=== PATIENT | male | born 1980 | race Two or more races ===

== ENCOUNTER 2022-05-18 08:54 | Outpatient (CLI) | payer OTHER, SELFPAY ==
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
--- OUTSIDE RECORDS SUMMARY | 2022-05-18 09:01 | XMS_ITS ---
:1980 Author Care Team Providers Name Role Phone Lucas Demi Melendez Primary Care Provider Unavailable Allergies Code Code System Name Reaction Severity Status Onset NKDA ? Notes: Allergen: NO KNOWN ALLERGIES Medications Name Status Start Date Stop Date ? ? Actos 30 mg tablet Completed 06/27/2019 07/25/2019 take 1 tablet by oral route every day amitriptyline 50 mg tablet Completed ? 07/22 TAKE 1/2 TABLET BY MOUTH ONCE EVERY DAY Antifungal (tolnaftate) 1 % topical cream Completed ? 10/27/2020 Aspir-81 mg tablet,delayed release Active 06/27/2019 Not available take 1 tablet by oral route every day aspirin 81 mg chewable tablet Completed ? Chew 1 tablet every day by oral route. Benadryl 25 mg capsule Completed 02/16/2017 9 take 1 capsule at night for sleep buspirone 10 mg tablet Completed 07/27/2018 9 take 1 tablet by oral route 2 times every day cephalexin 250 mg capsule Completed ? 2020 Crestor 10 mg tablet Completed 05/04/2017 10/12/2017 take 1 tablet by oral route every day Crestor 20 mg tablet Completed ? 10/27/2020 Take 1 tablet every day by oral route at bedtime. duloxetine 30 mg capsule,delayed release Completed ? 09/16/2021 1 CAPSULE DAILY AT BEDTIME FOR 1 WEEK, THEN INCREASE TO 2 CAPSU LES DAILY famotidine 10 mg tablet Active ? Not avai lable Take 1 tablet twice daily as needed 30 minutes before meals gabapentin 300 mg capsule Active ? Not av ailable TAKE TWO CAPSULES BY MOUTH TWICE DAILY NEEDED FOR PAIN gabapentin 600 mg tablet Completed 03/21/2019 020 take 1 tablet by oral route 2 times every day glimepiride 2 mg tablet Active ? Not avai lable TAKE 2 TABLETS IN THE MORNING AND TAKE 2 TABLETS IN THE EVENING hydrocodone 5 mg-acetaminophen 325 mg tablet Completed ? 05/05/2022 TAKE 1 TABLET BY MOUTH EVERY 4 HOURS IF NEEDED FOR PAIN. MAX ACETAMINOPHEN DOSE: 4000 MG IN 24 HRS. hydrocortisone 2.5 % topical cream Completed ? 09/09/2020 ibuprofen 400 mg tablet Completed ? 05/05/20 22 TAKE 1 TABLET BY MOUTH EVERY 4 HOURS NEEDED FOR 5 DAYS. insulin syringe U-100 with needle 1 mL 31 gauge x /16 Active ? Not available USE DIRECTED Keflex 750 mg capsule Completed ? 09/16/2020 Take 1 capsule twice a day by oral route. Maalox Advanced 200 mg-200 mg-20 mg/5 mL oral suspension Complet ed 04/25/2019 09/09/2020 take 10 milliliter by oral route between meals and at bedtime a s needed melatonin 10 mg capsule Completed 08/02/2016 08/31/19 17 one at bed time meloxicam 7.5 mg tablet Completed ? 11/13/19 21 metformin 1,000 mg tablet Completed 07/05/20182018 one in am and one in evening metformin 500 mg tablet Active ? Not avai lable TAKE ONE TABLET BY MOUTH TWICE A DAY methylprednisolone 4 mg tablets in a dose pack Completed ? 05/05/2022 TAKE BY MOUTH INSTRUCTED PER PACKAGING. metoclopramide 5 mg tablet Completed ? 05/05 TAKE 1 TABLET PRIOR TO MEALS 2 TO 3 TIMES A DAY NEEDED naproxen 500 mg tablet Active ? Not avail able TAKE 1 TABLET (500 MG) BY MOUTH IN THE MORNING AND 1 TABLET (500 MG) IN THE EVENING. TAKE WITH MEALS. Novolin N NPH U-100 Insulin Active 08/28/2020 Not available 40 U in pm and 32 U in am Novolin N NPH U-100 Insulin isophane 100 unit/mL subcutaneous espinoza sp Active ? Not available inject 57 units in the morning and 39 units in the evening subc utaneously Saline Nasal 0.65 % spray aerosol Completed 06/27/2019 09/09/2020 one puff in each side of nose twice a day sulfamethoxazole 800 mg-trimethoprim 160 mg Completed ? 09/01/2020 tablet tizanidine 2 mg tablet Active ? Not avail able TAKE 1-2 TABLETS (2-4 MG) BY MOUTH AT BEDTIME. tizanidine 4 mg tablet Active ? Not avail able TAKE 1 TABLET (4 MG) BY MOUTH AT BEDTIME. tramadol 50 mg tablet Active ? Not availa ble TAKE 1 TABLET (50 MG) BY MOUTH FOUR TIMES DAILY 6 HOURS APART. triamcinolone acetonide 0.1 % topical cream Completed ? 09/09/2020 APPLY A THIN LAYER TO THE AFFECTED AREA(S) BY TOPICAL ROUTE 2 T IMES PER DAY triamcinolone acetonide 0.5 % topical cream Completed 06/2209/27/2018 apply by topical route 2 times every day a thin layer to th e affected area(s) Zantac Maximum Strength 150 mg tablet Completed 06/27/2019 06/27/2019 take 1 tablet by oral route 2 times every day Problems Name Status Onset Date Source ? Type 2 Diabetes Mellitus Active 02/13/2020 ? Steatosis of Liver Active 02/13/2020 ? Dyslipidemia Active 11/12/2020 ? Abdominal Pain Active 11/12/2020 ? History of Cellulitis Active 11/12/2020 ? Liver Function Test Increased Active 11/12/2020 ? Procedures Date Name Performed by ? 04/08/2021 Electrocardiogram, Routine ECG, 12 Leads [facility] Non Stat [address] [place] [address] (Work Place) 09/16/2021 XR, Lumbosacral Spine, 2 or 3 View [facility] Non Stat [address] [place] [address] (Work Place) Notes: no surgery in past Results Lab Results Date Name Specimen Result Interpretation Description Value Range Status Address ? 04/23/2022 CMP, Serum ? Creatinine 0.78 ? [facility] or Plasma Laborat ories: [address], [place] ? ? High Alt 89 ? Final [facility]: [address], [place] 04/22/2022 Hemoglobin ? Hemoglobin 8.7 ? [facility] a1C, QN, a1C Laborato ruthann: Blood [address], [place] 04/22/2022 Lipid Panel, ? Total 192 ? Final [place] [facility] ? ? High Triglycerides 155 ? Final [facility]: [facility] [place] ? ? Low Hdl 40 ? Final [place] Office: [address], [place] ? ? ? Ldl 121 ? Final [place] Office: [address], [place] ? ? ? Micro Ratio 8.6 ? Final [facility] Office: [address], [place] 04/22/2022 Microalbumin ? Total 192 ? Final [place] /creatinine, Cholesterol Office: [address], [place] ? ? High Triglycerides 155 ? Final [place] Office: [address], [place] ? ? Low Hdl 40 ? Final [place] Office: [address], [place] ? ? ? Ldl 121 ? Final [place] Office: [address] [facility] [address], [place] ? ? ? Micro Ratio 8.6 ? Final [facility] Office: [address], [place] 12/30/2021 Glycohemoglo High A1C 8.0 % <5 Final [facility] bin, Total, .7 Labor atory: Blood % [address] , [facility] 11/25/2021 Urinalysis, ? Leukocytes Negative ? ? [place] Dipstick Office: [address] [facility] [address] [place], [place] ? ? ? Nitrite negative ? ? [place] ult Office: [address] [facility] [address] [place], [place] ? ? ? Urobilinogen 0.2 EU/dL ? ? [place] Office: [address], [place] ? ? ? Protein Negative ? ? Sy[place] ult Office: [address], [place] ? ? ? Ph 5.5 ? ? [place] Office: [address], [place] ? ? ? Blood Negative ? ? [place] Office: [address] [facility] [address], [place] ? ? ? Specific 1.025 ? ? [place] Office: [address] [facility] [address], [place] ? ? ? Ketone Negative ? ? [place] Office: [address] [facility] [address], [place] ? ? ? Bilirubin Negative ? ? [facility] [facility] Office: [address] [facility] [address], [place] ? ? ? Glucose Negative ? ? Syeda ult Office: [address] [facility] [address], [place] ? ? ? Appearance Clear ? ? Farib adelso Office: [address] [facility] [place] ? ? ? Color Yellow ? ? [place] Office: [address] [facility] [place] 10/07/2021 HbA1C Blood ? Hba1C 9.3 ? ? Syeda ult (Hemoglobin capillary Of fice: 1415 a1C), Blood [facility] [place] a[place] 07/15/2021 HbA1C ? Hba1C 7.1 ? ? Syeda ult (Hemoglobin Offic e: 1415 a1C), Blood [facility] [place] 04/01/2021 Hemoglobin High Hemoglobin 8.4 ? Donna l [facility] a1C, QN, a1C Laborato ry: Blood [address] , [place] 04/01/2021 Microalbumin ? Creatinine .94 ? ? [place] /creatinine, Offi ce: [address], [facility] [place] ? ? ? Alt 53 ? ? [place] Office: [address] [facility] [place] ? ? ? Creatinine, 1.62 ? ? [place] [facility] Urine Office: 14 [address] [facility] Diaz Levineibault ? ? ? Microalbumin 6.5 ? ? [place] Office: 14 [address] [facility] [place] 04/01/2021 CMP, Serum ? Creatinine .94 ? ? [place] or Plasma Office: [address] [facility] [place] ? ? ? Alt 53 ? ? [place] Office: [address] [facility] [place] ? ? ? Creatinine, 1.62 ? ? [place] [facility] Urine Office: 14 [address] [facility] [place] Levineibault ? ? ? Microalbumin 6.5 ? ? [place] Office: 14 [address] [facility] [place] 11/17/2020 Hemoglobin ? Hemoglobin 10.0 ? Donna l [facility] a1C, QN, a1C Laborato ry: Blood [address] , [place] 11/17/2020 TSH, Serum ? Tsh 1.96 ? Final [facility] or Plasma Laborat ory: [address] , [place] 11/17/2020 Lipid Panel, ? Total 182 ? Final Serum Cholesterol ? ? ? Triglycerides 141 ? Final ? ? ? Hdl 39 ? Final ? ? ? Ldl 115 ? Final 04/15/2020 HbA1C ? No observation ? ? ? [place] (Hemoglobin recorded. Of fice: 1415 a1C), Blood [place] 04/10/2020 HbA1C ? No observation ? ? ? [place] (Hemoglobin recorded. Of fice: 1415 a1C), Blood [place] 04/09/2020 CMP, Serum ? Creatinine 0.87 ? Donna l [place] or Plasma Office: [address] [facility] [place] [place], [place] ? ? ? Alt 78 ? Final [place] Office: 14 [address] [facility] [place] [place], [place] ? ? ? Total 189 ? Final [place] Cholesterol Offic e: [address] [facility] [place] [place], [place] ? ? ? Triglycerides 223 ? Final Fa [place] Office: 14 [address] [facility] [place] [place], [place] ? ? ? Hdl 36 ? Final [place] Office: [address], [place] ? ? ? Ldl 108 ? Final [place] Office: [address], [place] ? ? ? Microalbumin 40.1 ? Final [place] Office: 14 15 [facility] [address] [place], [place] ? ? ? Hgb a1C 11.8 ? Final [place] t Office: [address] [place], [place] ? Microalbumin ? Creatinine .94 ? ? [place] /creatinine, Offi ce: [address], [facility] Cristian [place], [place] ? ? ? Alt 53 ? ? [place] Office: 14 [address] [facility] [place] [place], [place] ? ? ? Creatinine, 1.62 ? ? [place] b[place] Urine Office: 14 15 [facility] Ad[address] [place], [place] ? ? ? Microalbumin 6.5 ? ? [place] Office: 14 15 [facility] Adryan [place], [place] ? HbA1C ? No observation ? ? ? [facility] phelps (Hemoglobin recorded. Of fice: 1415 a1C), Blood [place] Past Encounters 05/05/2022 Type 2 Diabetes Mellitus without Complic ation; Steatosis of Liver; Indigestion; Constipation Demi Zavala, BUSINESS ACCOUNT SPECIALIST: [address] [facility] [place] [place] [address], Ph. 01/13/2022 Type 2 Diabetes Mellitus without Complic ation Demi Zavaal, BUSINESS ACCOUNT SPECIALIST: [address] [facility] [place] [address], Ph. 11/25/2021 Increased Frequency of Urination; Type 2 Diabetes Mellitus; Chronic Low Back Pain; Night Sweats Demi Zavala, BUSINESS ACCOUNT SPECIALIST: [address] [facility] [place] [address], Ph. 10/07/2021 Type 2 Diabetes Mellitus without Complic ation; Peripheral Neuropathy Due to Type 2 Diabetes Mellitus; Chronic Low Back Pain Demi Zavala, BUSINESS ACCOUNT SPECIALIST: [facility] [place] [address], Ph. 07/22/2021 Depressive Disorder; Type 2 Diabetes Kaitlin litus without Complication; Chest Pain Demi Zavala BUSINESS ACCOUNT SPECIALIST: [address] [facility] [place] [address], Ph. 04/08/2021 Type 2 Diabetes Mellitus without Complic ation; Chest Pain Demi Zavala BUSINESS ACCOUNT SPECIALIST: [facility] [place] [address], Ph. 12/17/2020 Type 2 Diabetes Mellitus without Complic ation Demi Zavala BUSINESS ACCOUNT SPECIALIST: [address] [facility] [place] [address], Ph. 11/19/2020 Fatigue; Tachycardia; Hyperglycemia Demi Zavala BUSINESS ACCOUNT SPECIALIST: [facility] [place] [address], Ph. Social History Tobacco Smoking Status Never Smoker Vaccine List None recorded. Plan of Care Patient Instructions We will call you with the results of yo ur A1c and lumbar xrays to discuss next steps. Keep increasing insulin 2 units m orning and night every 2 days until we reach your goal sugars. Reminders Provider Appointments None recorded. ? ? Lab None recorded. ? ? Referral None recorded. ? ? Procedures None recorded. ? ? Surgeries None recorded. ? ? Imaging None recorded. ? ? Vitals 05/05/2022 10:30AM ESTABLISHED PATIENT Height Weight BMI Blood Pressure 5 ft 5 in 224.8 lbs 37.4 kg/m2 115/76 mm[Hg] 01/13/2022 09:00AM Returning patient 45 Height Weight BMI Blood Pressure 5 ft 5 in 224.8 lbs 37.4 kg/m2 114/76 mm[Hg] 11/25/2021 09:45AM Returning patient 45 Height Weight BMI Blood Pressure 5 ft 5 in 226.4 lbs 37.7 kg/m2 121/79 mm[Hg] 10/07/2021 01:30PM ESTABLISHED PATIENT Height Blood Pressure 5 ft 5 in 126/79 mm[Hg] 07/22/2021 09:45AM ESTABLISHED PATIENT Height Weight BMI 5 ft 5 in 221.4 lbs 36.8 kg/m2 04/08/2021 10:30AM Returning patient 45 Height Weight BMI Blood Pressure 5 ft 5 in 221 lbs 36.8 kg/m2 118/72 mm[Hg] 12/17/2020 10:30AM Returning patient 45 Height Weight BMI Blood Pressure 5 ft 5 in 218 lbs 36.3 kg/m2 123/77 mm[Hg] 11/19/2020 03:00PM NEW PATIENT 45 Height Weight BMI Blood Pressure 5 ft 5 in 212.5 lbs 35.4 kg/m2 136/86 mm[Hg] 11/17/2020 Weight Blood Pressure 212 lbs 136/86 mm[Hg] 08/27/2019 Blood Pressure 143/90 mm[Hg] 08/20/2019 Blood Pressure 141/82 mm[Hg] 07/25/2019 Blood Pressure 129/73 mm[Hg] 06/27/2019 Blood Pressure 145/77 mm[Hg] 04/25/2019 Blood Pressure 135/78 mm[Hg] 03/21/2019 Blood Pressure 141/78 mm[Hg] 02/14/2019 Blood Pressure 117/72 mm[Hg] 12/13/2018 Blood Pressure 122/72 mm[Hg] 11/01/2018 Blood Pressure 138/78 mm[Hg] 09/27/2018 Blood Pressure 134/84 mm[Hg] 08/23/2018 Blood Pressure 111/73 mm[Hg] 07/27/2018 Blood Pressure 135/75 mm[Hg] 07/05/2018 Blood Pressure 134/76 mm[Hg] 05/24/2018 Blood Pressure 121/74 mm[Hg] 05/11/2018 Blood Pressure 124/86 mm[Hg] 12/14/2017 Blood Pressure 122/78 mm[Hg] 11/16/2017 Blood Pressure 129/80 mm[Hg] 10/12/2017 Blood Pressure 106/68 mm[Hg] 09/07/2017 Blood Pressure (1) 124/71 mm[Hg] (2) 126/81 mm[Hg] 05/04/2017 Blood Pressure 129/72 mm[Hg] 02/16/2017 Blood Pressure 126/80 mm[Hg] 10/19/2016 Blood Pressure 127/82 mm[Hg] 08/31/2016 Blood Pressure 129/78 mm[Hg] 08/02/2016 Blood Pressure 120/73 mm[Hg] 07/06/2016 Blood Pressure 126/78 mm[Hg] 06/30/2016 Blood Pressure 136/82 mm[Hg] 04/28/2016 Blood Pressure 118/68 mm[Hg]
--- OUTSIDE RECORDS SUMMARY | 2022-05-18 09:01 | XMS_ITS | Encounter Summary ---
:1980 Author Reason for Visit None recorded. Assessment and Plan 1. Type 2 diabetes mellitus without com plication A1c 8.7% - less controlled than previou s visit, potentially due to musculoskeletal pain and multiple new analgesic meds. In crease insulin dosing to 47 units in the AM and 37 in the PM. Written instructions w ith new insulin dose and blood sugar goals provided (80-130 fasting and <180 2 hour s postprandial). Continue Metformin - refills sent to pharmacy. Insulin syringes and b lood glucose test strips provided. Follow up 3 months with labs. Refill gabapentin an d glimepiride. ? metformin 500 mg tablet ? hemoglobin A1c, QN, blood ? gabapentin 300 mg capsule ? glimepiride 2 mg tablet 2. Steatosis of liver AST and ALT slightly higher than previo us. Could be due to multiple new analgesics that patient has taken. Continue to [facility]. Check in 6 months ? hepatic function panel, serum 3. Indigestion Abdominal pain after eating. Trial of P RN Famotidine 30 minutes prior to meal (up to twice daily). Follow up 3 months (or suzanna ner if symptoms persist). Consider gallbladder etiology if persistent right upper quadrant discomfort after eating. ? famotidine 10 mg tablet 4. Constipation Patient has metamucil at home - plans t o start using daily. Encouraged daily walks and increased water. Follow up if sympto ms persist. Discussion Note: None recorded.Patient educational handouts: No information available. Plan of Care Reminders Provider Appointments Lab Work 08/05/2022 [facility], CPT 9:00AM ? Returning Patient 45 08/11/2022 Demi Zavala NP 9:45AM Lab Hemoglobin a1C, QN, Blood 08/04/2022 [facility] ? Hepatic Function Panel, 11/02/2022 [facility] Serum Referral None recorded. ? ? Procedures None recorded. ? ? Surgeries None recorded. ? ? Imaging None recorded. ? ? Medications Name Start Date ? ? Aspir-81 mg tablet,delayed release 06/27/2019 take 1 tablet by oral route every day famotidine 10 mg tablet ? Take 1 tablet twice daily as needed 30 minutes before meals gabapentin 300 mg capsule ? TAKE TWO CAPSULES BY MOUTH TWICE DAILY NEEDED FOR PAIN glimepiride 2 mg tablet ? TAKE 2 TABLETS IN THE MORNING AND TAKE 2 TABLETS IN T HE EVENING insulin syringe U-100 with needle 1 mL 31 gauge x 5/16 ? USE DIRECTED metformin 500 mg tablet ? TAKE ONE TABLET BY MOUTH TWICE A DAY naproxen 500 mg tablet ? TAKE 1 TABLET (500 MG) BY MOUTH IN THE MORNING AND 1 TABLET (500 MG) IN THE EVENING. TAKE WITH MEALS. Novolin N NPH U-100 Insulin 08/28/2020 40 U in pm and 32 U in am Novolin N NPH U-100 Insulin isophane 100 unit/mL subcu taneous susp ? inject 57 units in the morning and 39 units in the ev ening subcutaneously tizanidine 2 mg tablet ? TAKE 1-2 TABLETS (2-4 MG) BY MOUTH AT BEDTIME. tizanidine 4 mg tablet ? TAKE 1 TABLET (4 MG) BY MOUTH AT BEDTIME. tramadol 50 mg tablet ? TAKE 1 TABLET (50 MG) BY MOUTH FOUR TIMES DAILY 6 GRAEME RS APART. Medications Administered None recorded. Vitals Height Weight BMI Blood Pressure 5 ft 5 in 224.8 lbs 37.4 kg/m2 115/76 mm[Hg] Results Lab Results None recorded. Allergies Code Code System Name Reaction Severity Onset NKDA ? ? ? Notes: Allergen: NO KNOWN ALLERGIES Problems Name Status Onset Date Source ? Type 2 Diabetes Mellitus Active 02/13/2020 ? Steatosis of Liver Active 02/13/2020 ? Dyslipidemia Active 11/12/2020 ? Abdominal Pain Active 11/12/2020 ? History of Cellulitis Active 11/12/2020 ? Liver Function Test Increased Active 11/12/2020 ? Procedures Notes: no surgery in past Vaccine List None recorded. Social History Tobacco Smoking Status Never Smoker What type of diet are you following? REGULAR Are you currently employed? N What is your level of alcohol consumption? None What is your exercise level? None What is your level of caffeine consumption? 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 Past Encounters 05/05/2022 Type 2 Diabetes Mellitus without Complic ation; Steatosis of Liver; Indigestion; Constipation Demi Zavala MANAGER ACCESS: [address] [place] [address], Ph. History of Present Illness Note: <div>Gordon is a 42 y.o. male established patient </div><div>Medical history significant for type 2 diabetes, dyslipidemia, chronic low back pain (likely osteoarthritic changes), andsteatosis of liver </div><div>
</div><div>Diabetes follow up: Last seen 3.5 months ago when A1c was 8.0%. Was using Novolin N NPH 40 units in the AM and 32 units in thePM. Was encouraged to continue to adjust insulin to reach a goal sugar of 80-130 fasting in the mornings and <180 2 hours postprandial. Now he is using 45 units in the AM and 35 in the PM. Fasting sugars are 220 in the AM and 320 in the PM. </div><div>
</div><div>Recent labs 04/22/22: </div><div>A1c 8.7%</div><div>ALT 89, AST 51 (up from 53 and 44 respectively last year) - otherwise unremarkable CMP </div><div>Elevated triglycerides (155), LDL 121, TC 192. 10-year ASCVD risk of 2.8%</div><div>Normal microalbumin&lt ;/div><div>
</div><div>Since our last visit, Gordon has been having ongoing left shoulder and thoracic/low back pain for which he has been seeing ANUSHKA Norwood at [facility] and completed physical therapy. He continues on Tramadol and Tizanidine PRN andOTC analgesics. Was recently referred to ortho. Xrays of shoulder and back have been normal. </div ><div>
</div><div>He has noticed some right upper quadrant/epigastric stomach pain and reflux after eating recently, as well as increased constipation with some abdominal discomfort during bowel movements. One episode of nausea and vomiting 3 days ago. </div><div>Denies fever, chills, hematochezia, severe abdominal pain</div>Review of Systems: ROS as noted in the HPI Review of Systems None recorded. Physical Exam ? General Adult Exam, Diabetic Foot Exam Reported By: Patient Constitutional: General Appearance: healthy- appearing, well-nourished, well-developed. Level of Dis tress: NAD. Ambulation: ambulating normally Psychiatric: Insight: good judgement. Men kristen Status: active and alert, normal mood, normal affect. Orienta tion: oriented to time, oriented to place, oriented to person. M janelle: ; Memory is somewhat impaired Head: Head: normocephalic, atrauma tic Neck: Neck: supple, trachea midlin e, no masses, FROM, pain with motion, tender; Some left sided musc ular tenderness. Lymph Nodes: no cervical LAD. Thyroid: no enlargement , non-tender, no nodules Lungs: Auscultation: breath sounds normal, good air movement, CTA except as noted, no wheezing, no rales /crackles, no rhonchi Cardiovascular: Heart Auscultation: RRR, nor mal S1, normal S2, no murmurs, no rubs, no gallops. Neck vessels: no carotid bruits. Right Pulses: normal dorsalis pedis pulse. Left P ulses: normal dorsalis pedis pulse Abdomen: Bowel Sounds: normal. Inspec tion and Palpation: soft, non-distended, no guarding, no rebound tend erness, no masses, epigastric tenderness, RUQ tenderness; protuberant. Liver: no hepatomegaly, tenderness. Hernia: none palpable Neurologic: Gait and Station: normal gai t, normal station. Sensation: grossly intact, monofilament test in tact. Coordination and Cerebellum: no tremor. Sensation Right Foot : sensation intact, normal monofilament wire test, normal sensation on the dorsum of the foot. Sensation Left Foot: sensation intact, norm al monofilament wire test, normal sensation on the dorsum of t he foot Skin: Right Lower Extremity: norman l. Left Lower Extremity: normal Foot Exam:: Right Foot: right foot was e xamined, right foot toes were examined, digital hair present right, no interdigital erythema, normal motion, no deformity, no nail change s or disorders. Left Foot: left foot was examined, left foot toes wer e examined, digital hair present left, no interdigital erythema, norman l motion, no deformity, no nail changes or disorders
--- NOTE | 2022-05-18 09:15 | MR_ITS ---
[address] [address] Phone:?[phone] Fax:?[phone] Referring Physician Information: Artemio Plaza M.D. [address] [facility] [address] Phone:?[phone] Fax:?[phone] Patient:Jen Esquivel D.O.B:?1980 Sex:?Male Phone:?[phone] [facility] MRN:?[id number] Exam Date:?05/18/2022 ? EXAM: MRI of the LEFT SHOULDER, without contrast CLINICAL: Left shoulder pain. Evaluate for rotator cuff tear. COMPARISONS: None available. TECHNICAL: MRI sequences of the left shoulder: Axials: PD, PDFS Coronals: PD, T2FS Sagittals: PDFS, T2 SEDATION: None. CONTRAST: None. FINDINGS: Rotator cuff: Supraspinatus/Infraspinatus: There is mild to moderate tendinosis of the distal supraspinatus and infraspinous tendons. No significant tendon tear and no significant fatty atrophy of the muscle bellies. Teres minor: No evidence of tendinosis or tendon tear. Mild fatty infiltration of the muscle belly. Subscapularis: Moderate tendinosis and minimal partial interstitial tearing of the distal tendon. No significant fatty atrophy of the muscle belly. Bursae: Subacromial-subdeltoid: No convincing subacromial bursal thickening/bursitis. Subcoracoid: No convincing subcoracoid bursal thickening/bursitis. Coracoacromial arch: Acromion morphology: Type I. No os acromiale. Acromiohumeral space: Within normal limits. Coracohumeral space: Within normal limits. Biceps tendon, long head: Mild tendinosis of the intra-articular tendon. No significant tendon tear or displacement. Glenohumeral joint: Physiologic volume of joint fluid. Articular cartilage: Evaluation is relatively limited by artifact and lack of intra-articular fluid. Question underlying grade 2-3 chondral thinning involving the glenohumeral joint as visualized. Capsule: No convincing evidence of capsular thickening or injury. Labrum: Evaluation is relatively limited by artifact. There is tearing throughout the superior labrum. No additional convincing discrete labral tear identified as visualized. No perilabral cyst identified. Bones: No suspicious marrow signal alteration, fracture or dislocation. Acromioclavicular joint: No acute injury, arthropathy, or inferior hypertrophy. IMPRESSION: 1. Moderate tendinosis and minimal partial interstitial tearing of the distal subscapularis tendon. 2. Mild to moderate tendinosis of the distal supraspinatus and infraspinatus tendons without significant tendon tear. 3. Mild tendinosis of the intra-articular long head biceps tendon. 4. Tearing throughout the superior labrum. 5. Question grade 2-3 chondral thinning involving the glenohumeral joint, with evaluation of the glenohumeral cartilage relatively limited. JCZ Electronically signed on 05/18/2022 1:17:00 PM by Jeff Bourgeois D.O.
== END 2022-05-18 08:55 | disposition home or self-care (01) ==
PROVIDERS: PCP Physician Assistant; Visit Provider Orthopaedic Surgery Sports Medicine
DX: M25.512 Pain in left shoulder (principal); M75.102 Unspecified rotator cuff tear or rupture of left shoulder, not specified as traumatic; S46.912A Strain of unspecified muscle, fascia and tendon at shoulder and upper arm level, left arm, initial encounter; S43.432A Superior glenoid labrum lesion of left shoulder, initial encounter
CPT/HCPCS: 73221

== ENCOUNTER 2022-11-29 06:04 | Day surgery (SDC) | payer OTHER, SELFPAY ==
[2022-11-29] VITALS (17 sets, daily range): BP systolic 110–148; BP diastolic 58–103; PULSE 65–95; RESP 14–16; TEMP 36.2–36.7; O2SAT 91–99; BMI 38.9
[2022-11-29] MEDS: SODIUM CHLORIDE 0.9 % (FLUSH) 10 ML SYRINGE IVF (07:20)
[2022-11-29 07:25] LABS: SARS Antigen* N (Negative)
[2022-11-29] MEDS: LACTATED RINGERS 1000 ML 1,000 ML 100 ML IV (07:25)
--- NOTE | 2022-11-29 07:37 | SUR.PREOP ---
TIME?OUT:?0737 PT/RN/MDA?VERIFICATION?OF?SURGICAL?SITE,?PROCEDURE,?AND?CONSENT OBTAINED?PRIOR?TO?INVASIVE?PROCEDURE.
[2022-11-29] MEDS: fentaNYL 100 MCG/2 ML inj IVP (07:38)
[2022-11-29] MEDS: MIDAZOLAM HCL 1 MG/ML inj IVP (07:38)
--- NOTE | 2022-11-29 07:45 | W.PM.NB ---
Nerve Block Nerve Block Time Seen by Provider: 07:40 Date Seen: 11/29/22 Type of block requested by surgeon for post-operative analgesia: supraclavicular Side: left Time out performed: Yes Verification of patient name: Yes Verification of date of : Yes Site marking: site marked Name of person performing procedure: Luc Continuous monitoring Was continuous monitoring of O2 sat, B/P, color television console monitor, recorded every 15 minutes?: Yes Procedure Checklist: sterile prep, needles and gloves Ultrasound guided. Images saved: Yes Medications given in 5ml increments after negative aspiration: Ropivicaine %: 0.5 mL: 20 Needle gauge: 22 Decadron (mg): 10 Precedex (mcg): 25 Patient tolerated procedure well: Yes Block Charges Block Charge (with Pro Fee): Brachial Plexus Use of Ultrasound Machine for Block: Yes- US Guidance/pain block
--- NOTE | 2022-11-29 07:47 | W.ANESCHARGE ---
Anesthesia Charges Start Date/Time Anesthesia Start Date: 11/29/22 Anesthesia Start Time: 07:45 Stop Date/Time Anesthesia Stop Date: 11/29/22 Anesthesia Stop Time: 09:41
--- NOTE | 2022-11-29 07:52 | SUR.PREOP ---
Pt verbalized he forgot to take home covid test, SARS antigen taken upon admission and is negative.
[2022-11-29] MEDS: CEFAZOLIN 2 GM in 0.9 % SODIUM CHLORIDE Mini-bag 100 ML IVPB (08:00)
[2022-11-29] MEDS: EPINEPHrine 1 MG in SODIUM CHLORIDE IRRIG SOLUTION 3,000 ML 9003 MG IRRIGATION ×4 (08:19→09:06)
--- NOTE | 2022-11-29 08:27 | W.ANESCHARGE ---
Anesthesia Charges Start Date/Time Anesthesia Start Date: 11/29/22 Anesthesia Start Time: 07:45 Stop Date/Time Anesthesia Stop Date: 11/29/22 Anesthesia Stop Time: 09:41
--- NOTE | 2022-11-29 09:18 | PM.ORPRC ---
Procedure Note Date of procedure: 11/29/22 Procedure: PREOPERATIVE DIAGNOSES: 1. Left shoulder rotator cuff tear. 2. Left shoulder subacromial impingement syndrome. POSTOPERATIVE DIAGNOSES: 1. Left shoulder rotator cuff tear - subscapularis upper border & anterior portion supraspinatus 2. Left shoulder anterior and superior labral fraying/tearing 3. Left shoulder subacromial impingement syndrome. NAME OF OPERATION: 1. Left shoulder arthroscopic rotator cuff repair - upper border subscap and anterior portion supraspinatus 2. Left shoulder arthroscopic limited glenohumeral debridement 3. Left shoulder arthroscopic bursectomy, subacromial decompression/partial acromioplasty. SURGEON: Artemio Plaza MD WEB PAGE DESIGNER: Skyler HICKMAN. Of note, a skilled academic support assistant was critical for this case to aide in patient positioning, suture manipulation, arm positioning, instrument positioning, and closure. ANESTHESIA: General plus preoperative supraclavicular block. EBL: Less than 50 mL IMPLANTS: Arthrex 4.75 mm BioComposite SwiveLock suture anchor (x1); 2.6 mm FiberTak RC (x1); 5.5 mm BioComposite SwiveLock suture anchor (x1) COMPLICATIONS: None evident INDICATIONS: The patient is a pleasant, 42-year-old male who has experienced left shoulder pain that has been increasing in recent time. Physical exam and imaging were consistent with a rotator cuff tear. Given their findings, as well as the weakness and pain, and inadequate response to nonoperative management, recommendation was made for surgery. FINDINGS: Exam under anesthesia revealed stable shoulder with excellent range of motion. The diagnostic arthroscopy revealed healthy chondral surfaces of the glenohumeral joint. The Subscapularis tendon was torn from its upper border with mild retraction. The long head of the biceps tendon was intact without longitudinal splitting, tearing, or fraying. No significant hemorrhagic tissue around the biceps either. The superior rotator cuff tendon was found to be torn and high-grade partial-thickness manner more so on the bursal surface but near the musculotendinous junction. The labrum was degeneratively frayed in the anterior and superior aspects. No loose bodies were identified within the pouch or subscapularis recess. PROCEDURE: Following a thorough discussion of risks, benefits, and alternatives, consent was obtained and the left shoulder was marked. The patient was brought to the operating room and placed supine on the operating table. Induction of anesthesia was completed after preoperative supraclavicular block was administered in preop holding. Appropriate time out was performed identifying proper patient, site, and procedure. 2 g IV Ancef was administered within 1 hour of incision preoperatively. The left upper extremity was prepped and draped in the appropriate sterile fashion using ChloraPrep prep. This was after the patient was positioned in the beach chair with their head in neutral alignment and all bony prominences well padded. The shoulder was insufflated with 20mL of normal saline via an 18g spinal needle from a posterior approach. An 11 blade skin incision allowed a blunt trochar to be inserted and diagnostic arthroscopy to be performed with the findings as noted above. An anterior portal was established with an outside in technique. This allowed the probe to be inserted and confirm the diagnostic arthroscopic findings. The shaver was then inserted and allowed debridement of the anterior and superior labrum. Following this, the upper border subscapularis was repaired after debriding the lesser tuberosity with the shaver and Mercer cautery. Subscapularis was captured in horizontal mattress fashion with a fiber tape suture. The tails were brought to a single anchor in the lesser tuberosity with excellent reapproximation of the subscap tendon and good excursion/tension. Thereafter, the subacromial space was entered. Here, a complete bursectomy and partial acromioplasty/subacromial decompression was performed with a combination of radiofrequency ablator, the shaver, and a 5.5 mm bur. Further inspection of the supraspinatus and infraspinatus rotator cuff was performed. This identified the tear as noted above. The margins of the tear were debrided, and the greater tuberosity was debrided with a combination of the apollo cautery, shaver, and bur on reverse setting. [After gentle decortication, single 2.6 mm FiberTak RC was placed along the medial row after preparing the greater tuberosity. This was not suture tape pre loaded FiberTak RC. All 4 tails were passed through the rotator cuff tear after preparation. This tails were brought to a single 5.5 mm lateral row anchor. Of note, the rotator cuff tear was near the musculotendinous junction. A short tendon could be captured with these 4 tails (approximately 5 mm in length) until the rotator cuff muscle belly was encountered. Prior to anchor sales driver removal, the eyelet sutures were tugged on for each anchor and found that the anchor had excellent stability within the bone. The shoulder was placed through range of motion and found to be stable. The rotator cuff was re-probed and found to be stable. Instruments were removed. Excess fluid was drained, closure performed with 4-0 Monocryl and Steri-Strips. Dressings were applied. Sling was applied. The patient was awoken from anesthesia and transferred to the PACU in stable condition. A skilled academic support assistant was critical for this case to aid in patient positioning, limb positioning, skill to manipulate arthroscopic instruments and camera, suture management, patient safety, and closure. PLAN: 1. Elbow, forearm, wrist and digit range of motion of operative extremity as tolerated. 2. Encouraged ice. 3. Percocet for pain as needed. 4. Sling at all times except for ROM and showering. 5. Follow up with PA visit in 1-2 weeks for wound check. Initiate physical therapy following that visit for passive range of motion. Initiate active assisted range of motion at 3 weeks. May do pendulums now.
[2022-11-29] MEDS: ONDANSETRON 2 MG/ML inj 4 MG IVP (10:43)
[2022-11-29] MEDS: OxyCODONE/APAP 5-325 TABLET PO (10:44)
[2022-11-29] MEDS: hydrOXYzine pamoate 25 MG CAPSULE PO (11:16)
[2022-11-29] MEDS: METOCLOPRAMIDE HCL 5 MG/ML INJ 10 MG IVP (12:12)
== END 2022-11-29 12:30 | disposition home or self-care (01) ==
PROVIDERS: PCP Physician Assistant; Visit Provider Orthopaedic Surgery Sports Medicine
PROC: (CPT 29805; principal; 2022-11-29 07:45)
DX: M75.102 Unspecified rotator cuff tear or rupture of left shoulder, not specified as traumatic (principal); M75.42 Impingement syndrome of left shoulder; S43.432A Superior glenoid labrum lesion of left shoulder, initial encounter
CPT/HCPCS: 29827; 29826; 29822; 01630; 64415; 76942; 82962; 87426; T1013; A9270; C1713; J0171; J0330; J0690; J1100; J1170; J2250; J2405; J2704; J2765; J2795; J3010; J3490; J7120; L3670

== ENCOUNTER 2023-08-12 06:57 | Outpatient (CLI) | payer OTHER, SELFPAY | END 2023-08-12 06:58 | disposition home or self-care (01) | PROVIDERS: PCP Physician Assistant; Visit Provider Family Medicine | DX: M51.36 Other intervertebral disc degeneration, lumbar region (principal); M54.16 Radiculopathy, lumbar region | CPT/HCPCS: 62323; J0702; Q9966 ==

== ENCOUNTER 2023-10-11 07:18 | Outpatient (CLI) | payer SELFPAY ==
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
--- OUTSIDE RECORDS SUMMARY | 2023-10-11 07:21 | XMS_ITS | Data Portability ---
Author Name Unknown Address [address] [place] [id number] Phone [phone] Organization [facility] Address [address] [place] [address] [place] [address] Assessment Encounter Date Assessment Date Assessment LastModified by Organization Details LastModified Time 02/13/2020 02/13/2020 states glucometer values are in high 100's tiffanie Not available 02/13/2020 18:04:37 10/06/2022 10/06/2022 Patient scheduled for 10/20 in person for follow up Not available 10/06/2022 15:03:13 Plan of Treatment Reminders Order Date Submit Date Provider Last Modified By Organization Details Last Modified Time Details Appointments LAB WORK 2023 10:00A M Lab Not available Not available Not available Any 45 2023 11:15A M Demi Zavala CNP Not available Not available Not available Lab hemogl obin A1c, QN, blood 2022 024 [facility] [place] [facility], [address] [place] [address] [place], [address], 10/10/2023 15:37:08 hemogl obin A1c, QN, blood 2022 023 [facility], [address] [place] [address] [place], [address], 05/11/2023 11:44:31 lipid panel, serum 2022 023 [facility], [address] [place] [address] [place], [address], 05/11/2023 11:44:31 microa lbumin /creat inine, ratio panel, urine 2022 023 [facility], [address] [place] [address] [place], [address], 05/12/2023 10:57:56 BMP, serum or plasma 2022 023 [facility], [address] [place] [address] [place], [address], 05/11/2023 11:44:30 H pylori Ag, stool 2021 022 [facility], [address] [place] [address] [place], [address], 08/31/2022 10:39:49 hemogl obin A1c, QN, blood 2021 023 [facility], [address] [place] [address] [place], [address], 01/07/2023 13:22:56 hepati c functi on panel, serum 2021 023 [facility], [address] [place] [address] [place], [address], 05/11/2023 11:44:30 hemogl obin A1c, QN, blood 2021 022 [facility], [address] [place] [address] [place], [address], 08/06/2022 16:07:10 hemogl obin A1c, QN, blood 2021 022 [facility], [address] [place], [place] [address], [address], 04/24/2022 14:35:31 CMP, serum or plasma 2021 022 [facility], [facility] [place], [address], 04/23/2022 16:37:52 lipid panel, serum 2021 [facility], [address] [place] [address] [place], [address], 04/27/2022 13:07:11 microa lbumin /creat inine, mass ratio, urine 2021 [facility], [address] [place] [address] [place], [address], 04/27/2022 13:07:11 glycoh emoglo bin, total, blood 2021 [facility], [address] [place] [address] [place], [address], 01/01/2022 11:04:51 urinal ysis, dipsti ck 2021 [facility], [address] [place] [address] [place], [address], 11/25/2021 11:45:57 hemogl obin A1c, QN, blood 2020 021 [email or web address] [place] [facility], [address] [place] [address] [place], [address], 07/15/2021 16:28:32 hemogl obin A1c, QN, blood 2020 021 [facility], [address] [place] [address] [place], [address], 11/18/2020 10:04:06 lipid panel, serum 2020 021 [facility], [address] [place] [address] [place], [address], 11/17/2020 15:27:39 TSH, serum or plasma 2020 021 [facility], [facility] [place], [address], 11/17/2020 16:43:20 HbA1c (hemog lobin A1c), blood 2019 020 [facility], [address] [place] [address] [place], [address], 04/10/2020 14:59:37 CMP, serum or plasma 2019 020 [facility], [address] [place] [address] [place], [address], 04/10/2020 14:44:04 CMP, serum or plasma 2019 020 [facility], [address] [place] [address] [place], [address], 04/10/2020 14:43:08 lipid panel, serum 2019 020 [facility], [address] [place] [address] [place], [address], 04/10/2020 14:44:21 CBC 2019 020 [email or web address] [place] [facility], [facility] [place], [address], 05/13/2020 18:37:13 microa lbumin , urine 2019 020 [facility], [facility] [place], [address], 04/10/2020 14:44:29 HbA1c (hemog lobin A1c), blood 2019 020 [facility], [address] [place] [address] [place], [address], 04/10/2020 14:49:32 Referral diabet ic ophtha lmolog y referr al 2021 022 [email or web address] Not available 11/25/2021 19:18:11 mental health counse sheryl referr al 2020 021 [email or web address] Not available 07/22/2021 19:58:20 diabet ic ophtha lmolog y referr al 2020 021 [email or web address] Not available 11/12/2020 17:56:46 commun ity health worker referr al 2020 021 [email or web address] Not available 09/11/2020 10:14:38 commun ity care referr al 2020 021 [email or web address] Not available 08/28/2020 12:10:56 Procedures None record ed. Surgeries None record ed. Imaging electr ocardi ogram, routin e ECG, 12 leads min - Patien t availa ble evendiana g and [facility] staff will f/u with [facility] Radiol ogy schedu ling to schedu le appt. Thank you! 2020 [facility] Radiology Non Stat, [address], [place], [address], 05/22/2021 10:08:24 Medication Orders glipiz jocy ER 10 mg tablet , extend ed releas e 24 hr 2022 023 [facility], [address], [place], [address], 08/03/2023 15:24:09 metfor min ER 500 mg tablet ,exten ded releas e 24 hr 2022 023 [facility] [place], [address], [place], [address], 09/20/2023 14:14:24 gabape ntin 300 mg capsul e 2022 023 [facility], [address], [place], [address], 08/18/2023 13:16:54 omepra zole 20 mg capsul e,romie yed releas e 2022 023 [facility] [place], [address], [place], [address], 08/23/2023 10:43:24 triamc inolon e aceton jocy 0.1 % topica l cream 2022 023 [facility] [place], [address], [place], [address], 05/19/2023 11:40:59 tolnaf giordano 1 % topica l cream 2022 023 [facility], [address], [place], [address], 05/19/2023 10:33:50 gabape ntin 300 mg capsul e 2022 023 [facility], [address], [place], [address], 06/06/2023 17:12:38 glipiz jocy ER 10 mg tablet , extend ed releas e 24 hr 2022 023 [facility], [address], [place], [address], 07/11/2023 12:25:31 metfor min ER 500 mg tablet ,exten ded releas e 24 hr 2022 023 [facility] [place], [address], [place], [address], 07/08/2023 16:01:30 gabape ntin 300 mg capsul e 2022 023 [facility] [place], [address], [place], [address], 01/26/2023 13:15:43 metfor min ER 500 mg tablet ,exten ded releas e 24 hr 2022 023 [facility], [address], [place], [address], 02/10/2023 18:01:26 omepra zole 20 mg capsul e,romie yed releas e 2022 023 [facility], [address], [place], [address], 01/26/2023 13:15:47 metfor min ER 500 mg tablet ,exten ded releas e 24 hr [address], [address], [place], [address], 01/26/2023 12:21:41 Antifu ngal (tolna ftate) 1 % topica l cream 2022 023 [facility], [address], [place], [address], 10/06/2022 16:17:35 famoti dine 10 mg tablet [address], [address], [place], [address], 09/01/2022 16:40:23 gabape ntin 300 mg capsul e 2021 022 [facility], [address], [place], [address], 08/11/2022 17:02:43 tramad ol 50 mg tablet [address], [address], [place], [address], 01/26/2023 12:22:42 famoti dine 10 mg tablet [address], [address], [place], [address], 09/01/2022 16:40:23 metfor min 500 mg tablet [address], [address], [place], [address], 10/06/2022 14:50:41 gabape ntin 300 mg capsul e 2021 [facility], [address], [place], [address], 05/24/2022 10:44:51 glimep iride 2 mg tablet [address], [address], [place], [address], 01/26/2023 12:20:35 gabape ntin 300 mg capsul e 2021 [facility], [address], [place], [address], 04/13/2022 14:42:04 metfor min 500 mg tablet [address], [address], [place], [address], 10/06/2022 14:50:41 glimep iride 2 mg tablet [address], [address], [place], [address], 01/26/2023 12:20:35 metfor min 500 mg tablet [address], [address], [place], [address], 10/06/2022 14:50:41 duloxe bolivar 30 mg capsul e,romie yed releas e [address], [address], [place], [address], 09/16/2021 10:19:10 metfor min 500 mg tablet [address], [address], [place], [address], 10/06/2022 14:50:41 amitri ptylin e 50 mg tablet [address], [address], [place], [address], 07/22/2021 10:56:10 gabape ntin 300 mg capsul e 2020 [facility], [address], [place], [address], 10/20/2020 17:18:54 meloxi cam 7.5 mg tablet [address], [address], [place], [address], 11/12/2020 14:10:30 Tinact in 1 % topica l cream 2020 tiffanie [facility], [address], [place], [address], 10/27/2020 18:07:38 Novoli n N NPH U-100 Insuli n isopha ne 100 unit/m L subcut aneous susp [address], [address], [place], [address], 01/26/2023 12:23:26 meloxi cam 7.5 mg tablet [address], [address], [place], [address], 11/12/2020 14:10:30 Keflex 750 mg capsul e 2020 021 [facility], [address], [place], [address], 09/16/2020 20:10:58 sulfam ethoxa zole 800 mg-tri methop rim 160 mg tablet 2020 021 [facility], [address], [place], [address], 09/01/2020 17:20:06 aspiri n 81 mg chewab le tablet 2019 020 [facility], [address], [place], [address], 09/16/2020 20:10:54 glimep iride 2 mg tablet [address], [address], [place], [address], 01/26/2023 12:20:35 Cresto r 20 mg tablet 2019 020 [facility], [address], [place], [address], 10/27/2020 18:07:44 metocl oprami de 5 mg tablet [address], [address], [place], [address], 05/05/2022 11:36:38 Patient Targets Encounter Date Encounter Id Patient Goals Patient Target Last Modified By Organization Details Last Modified Time shoot for BS arnd 150, slow adjustment to avoid low blood sugars tiffanie Not available 10/27/2020 18:09:30 individualize insulin, tiffanie Not available 09/23/2020 19:43:05 Patient Instructions Encounter Date Encounter Id Patient Instructions Last Modified By Organization Details Last Modified Time 05/18/2023 [id number] diabetic eye exa m* - Diabetic eye exam [email or web address] Not available 05/24/2023 17:32:08 coordination of care* [email or web address] Not available 05/24/2023 17:32:14 10/07/2021 [id number] coordination of care* Not available 10/09/2021 12:41:25 We will call you with the results of your A1c and lumbar xrays to discuss next steps. Keep increasing insulin 2 units morning and night every 2 days until we reach your goal sugars. Not available 10/07/2021 15:40:18 07/22/2021 [id number] coordination of care* [email or web address] Not available 07/22/2021 21:51:48 10/20/2020 [id number] stop meloxicam, add gabapentin, incr am insulin to 44 U tiffanie Not available 10/20/2020 17:17:38 10/13/2020 [id number] get syringes for up to 50 units tiffanie Not available 10/13/2020 17:48:27 10/07/2020 [id number] get booklet abou t diabetes from receptioist in [place] tiffanie Not available 10/07/2020 17:53:25 09/30/2020 [id number] reduce metoclopramide to twice a day tiffanie Not available 09/30/2020 19:42:55 09/23/2020 [id number] exercise some, rotate injection sites tiffanie Not available 09/23/2020 19:43:33 09/16/2020 [id number] rotate sites, go to 10 U twice a day with glucometer readings, discuss how long insulin lasts in the body tiffanie Not available 09/16/2020 20:10:46 09/09/2020 [id number] will contact Ysabel Giles about instruction, Chayito on the DOXY call tiffanie Not available 09/09/2020 18:44:39 09/01/2020 [id number] go to ER if worsening, counselor will discuss past history, family history as well as mental health tiffanie Not available 09/01/2020 17:19:07 please send a photo of leg tiffanie Not available 09/01/2020 17:19:22 03/12/2020 [id number] continue to diet and exercise tiffanie Not available 03/12/2020 20:06:54 02/13/2020 [id number] continue to work on weight reduction, glucometers twice a week tiffanie Not available 02/13/2020 18:05:21 Reason for Referral Community Care Referral for Type II diabetes mellitus uncontrolled he's ready for insllin instruction, begin with 10 U in am and 5 U in pm Referring Physician: Nahum Hernandez, Internal Medicine, Encounter Date: 08/28/2020 Community Health Worker Refe rral for Type II diabetes mellitus uncontrolled Follow up on insulin progress and BG numbers in 1 week. Already discussed with RR. Referring Physician: Cecilia Giles, Family Medicine, Encounter Date: 09/10/2020 Diabetic Ophthalmology Refer ral for Type 2 diabetes mellitus without complication Referring Physician: Demi Zavala, Family Medicine, Encounter Date: 11/12/2020 Mental Health Counselor Refe rral for Depressive disorder Depression/anxiety in the setting of chronic disease and pain Referring Physician: Demi Z[place]ala Family [facility], Encounter Date: 07/22/2021 Diabetic Ophthalmology Refer ral for Type 2 diabetes mellitus Referring Physician: Demi [place] Family [facility], Encounter Date: 11/25/2021 Results Created Date Observation Date Name Description Value Unit Range Abnormal Flag LastModifiedBy Organization Detail LastModifiedTime 04/03/2021 micro album in/cr eatin ine, mass ratio , urine creatinine .94 Not Available [facility] [address] [place] [address], [address], 04/03/2021 17:27:22 04/03/2021 micro album in/cr eatin ine, mass ratio , urine ALT 53 Not Available [facility] [address] [place] [address] [place], [address], 04/03/2021 17:27:22 04/03/2021 micro album in/cr eatin ine, mass ratio , urine creatinine, urine 1.62 Not Available [place] [facility] [address] [place] [address] [place], [address], 04/03/2021 17:27:22 04/03/2021 micro album in/cr eatin ine, mass ratio , urine microalbumin 6.5 Not Available [facility] [address] [place] [address] [place], [address], 04/03/2021 17:27:22 04/09/20 20 04/09/2020 CMP, serum or plasm a creatinine 0.87 Not Available [facility] [address] [place] [address] [place], [address], 04/10/2020 14:42:33 04/09/20 20 04/09/2020 CMP, serum or plasm a ALT 78 Not Available [facility] [address] [place] [address] [place], [address], 04/10/2020 14:42:33 04/09/20 20 04/09/2020 CMP, serum or plasm a total cholesterol 189 Not Available [place] [facility] [address] [place] [address] [place], [address], 04/10/2020 14:42:33 04/09/20 20 04/09/2020 CMP, serum or plasm a triglyceride s 223 Not Available [place] [facility] [address] [place] [address] [place], [address], 04/10/2020 14:42:33 04/09/20 20 04/09/2020 CMP, serum or plasm a HDL 36 Not Available [facility] [address] [place] [address] [place], [address], 04/10/2020 14:42:33 04/09/20 20 04/09/2020 CMP, serum or plasm a LDL 108 Not Available [facility] [place], [address], 04/10/2020 14:42:33 04/09/20 20 04/09/2020 CMP, serum or plasm a microalbumin 40.1 Not Available [facility] [address] [place] [address] [place], [address], 04/10/2020 14:42:33 04/09/20 20 04/09/2020 CMP, serum or plasm a HGB A1C 11.8 Not Available [facility] [address] [place] [address] [place], [address], 04/10/2020 14:42:33 05/14/20 20 05/14/2020 micro album in, urine Microalbumin 40.1 Not Available [facility] [address] [place] [address] [place], [address], 03/12/2020 16:22:13 11/18/19 21 11/17/2020 hemog lobin A1c, QN, blood hemoglobin A1C 10.0 Not Available [facility] [address], [place], [address], 11/18/2020 09:08:14 11/18/19 21 11/17/2020 TSH, serum or plasm a TSH 1.96 Not Available [facility] [address], [place], [address], 11/17/2020 16:16:41 11/18/19 21 11/17/2020 lipid panel , serum total cholesterol 182 Not Available Not Available 11/17/2020 15:08:25 11/18/19 21 11/17/2020 lipid panel , serum triglyceride s 141 Not Available Not Available 15:08:25 11/18/19 21 11/17/2020 lipid panel , serum HDL 39 Not Available Not Available 10/21 15:08:25 11/18/19 21 11/17/2020 lipid panel , serum LDL 115 Not Available Not Available 10/21 15:08:25 04/01/20 21 04/01/2021 hemog lobin A1c, QN, blood hemoglobin A1C 8.4 high Not Available [facility] [address], [place], [address], 04/02/2021 18:11:00 04/01/20 21 04/01/2021 micro album in/cr eatin ine, mass ratio , urine creatinine .94 Not Available [facility] [address] [place] [address] [place], [address], 04/02/2021 12:57:40 04/01/20 21 04/01/2021 micro album in/cr eatin ine, mass ratio , urine ALT 53 Not Available [facility] [address] [place] [address] [place], [address], 04/02/2021 12:57:40 04/01/20 21 04/01/2021 micro album in/cr eatin ine, mass ratio , urine creatinine, urine 1.62 Not Available [place] [facility] [address] [place] [address] [place], [address], 04/02/2021 12:57:40 04/01/20 21 04/01/2021 micro album in/cr eatin ine, mass ratio , urine microalbumin 6.5 Not Available [facility] [address] [place] [address] [place], [address], 04/02/2021 12:57:40 04/01/20 21 04/01/2021 CMP, serum or plasm a creatinine .94 Not Available [facility] [address] [place] [address] [place], [address], 04/02/2021 12:18:17 04/01/20 21 04/01/2021 CMP, serum or plasm a ALT 53 Not Available [facility] [address] [place] [address] [place], [address], 04/02/2021 12:18:17 04/01/20 21 04/01/2021 CMP, serum or plasm a creatinine, urine 1.62 Not Available [place] [facility] [address] [place] [address] [place], [address], 04/02/2021 12:18:17 04/01/20 21 04/01/2021 CMP, serum or plasm a microalbumin 6.5 Not Available [facility] [address] [place] [address] [place], [address], 04/02/2021 12:18:17 07/15/20 21 07/15/2021 HbA1c (hemo globi n A1c), blood HbA1c 7.1 Not Available [facility] [address] [place] [address] [place], [address], 07/15/2021 16:53:09 10/07/19 22 10/07/2021 HbA1c (hemo globi n A1c), blood HbA1c 9.3 Not Available [facility] [address] [place] [address] [place], [address], 10/07/2021 15:34:31 11/26/19 22 11/25/2021 urina lysis , dipst ick Leukocytes Negati ve Not Available [place] [facility] [address] [place] [address] [place], [address], 11/25/2021 11:32:47 11/26/19 22 11/25/2021 urina lysis , dipst ick Nitrite negati ve Not Available [place] [facility] [address] [place] [address] [place], [address], 11/25/2021 11:32:47 11/26/19 22 11/25/2021 urina lysis , dipst ick Urobilinogen 0.2 EU/dL Not Available [place] [facility] [address] [place] [address] [place], [address], 11/25/2021 11:32:47 11/26/19 22 11/25/2021 urina lysis , dipst ick Protein Negati ve Not Available [place] [facility] [address] [place] [address] [place], [address], 11/25/2021 11:32:47 11/26/19 22 11/25/2021 urina lysis , dipst ick pH 5.5 Not Available [facility] [address] [place] [address] [place], [address], 11/25/2021 11:32:47 11/26/19 22 11/25/2021 urina lysis , dipst ick Blood Negati ve Not Available [place] [facility] [address] [place] [address] [place], [address], 11/25/2021 11:32:47 11/26/19 22 11/25/2021 urina lysis , dipst ick Specific [place] 1.025 Not Available [place] [facility] [address] [place] [address] [place], [address], 11/25/2021 11:32:47 11/26/19 22 11/25/2021 urina lysis , dipst ick Ketone Negati ve Not Available [place] [facility] [address] [place] [address] [place], [address], 11/25/2021 11:32:47 11/26/19 22 11/25/2021 urina lysis , dipst ick Bilirubin Negati ve Not Available [place] [facility] [address] [place] [address] [place], [address], 11/25/2021 11:32:47 11/26/19 22 11/25/2021 urina lysis , dipst ick Glucose Negati ve Not Available [place] [facility] [address] [place] [address] [place], [address], 11/25/2021 11:32:47 11/26/19 22 11/25/2021 urina lysis , dipst ick Appearance Clear Not Available [facility] [address] [facility] [place], [address], 11/25/2021 11:32:47 11/26/19 22 11/25/2021 urina lysis , dipst ick Color Yellow Not Available [facility] [place], [address], 11/25/2021 11:32:47 12/31/19 22 12/30/2021 glyco hemog lobin , total , blood A1C 8.0 % <5.7 high Not Available [facility] [address] [facility] [address], [place], [address], 01/01/2022 09:14:22 04/22/20 22 04/22/2022 hemog lobin A1c, QN, blood hemoglobin A1C 8.7 Not Available [facility] [address], [place], [address], 04/24/2022 14:06:23 04/22/20 22 04/22/2022 lipid panel , serum total cholesterol 192 Not Available [place] [facility] [place], [address], 04/23/2022 12:10:45 04/22/20 22 04/22/2022 lipid panel , serum triglyceride s 155 high Not Available [place] [facility] [place], [address], 04/23/2022 12:10:45 04/22/20 22 04/22/2022 lipid panel , serum HDL 40 low Not Available [facility] [address] [facility] [place], [address], 04/23/2022 12:10:45 04/22/20 22 04/22/2022 lipid panel , serum LDL 121 Not Available [facility] [address] [place] [address] [place], [address], 04/23/2022 12:10:45 04/22/20 22 04/22/2022 lipid panel , serum micro ratio 8.6 Not Available [facility] [address] [place] [address] [place], [address], 04/23/2022 12:10:45 04/22/20 22 04/22/2022 micro album in/cr eatin ine, mass ratio , urine total cholesterol 192 Not Available [place] [facility] [address] [place] [address] [place], [address], 04/27/2022 13:07:11 04/22/20 22 04/22/2022 micro album in/cr eatin ine, mass ratio , urine triglyceride s 155 high Not Available [place] [facility] [address] [place] [address] [place], [address], 04/27/2022 13:07:11 04/22/20 22 04/22/2022 micro album in/cr eatin ine, mass ratio , urine HDL 40 low Not Available [facility] [address] [place] [address] [place], [address], 04/27/2022 13:07:11 04/22/20 22 04/22/2022 micro album in/cr eatin ine, mass ratio , urine LDL 121 Not Available [facility] [address] [place] [address] [place], [address], 04/27/2022 13:07:11 04/22/20 22 04/22/2022 micro album in/cr eatin ine, mass ratio , urine micro ratio 8.6 Not Available [facility] [address] [place] [address] [place], [address], 04/27/2022 13:07:11 04/23/20 22 04/23/2022 CMP, serum or plasm a creatinine 0.78 Not Available [facility] [address] [place], [address], 04/23/2022 16:14:36 04/23/20 22 04/23/2022 CMP, serum or plasm a ALT 89 high Not Available [facility] [address] [place], [address], 04/23/2022 16:14:36 08/05/20 22 08/05/2022 hemog lobin A1c, QN, blood hemoglobin 8.1 high Not Available [facility] [address] [place], [address], 08/06/2022 15:10:35 09/20/19 23 09/20/2022 hemog lobin A1c, QN, blood hemoglobin 7.3 high Not Available [facility] [address] [place], [address], 09/20/2022 15:16:28 01/07/20 23 01/06/2023 hemog lobin A1c, QN, blood A1C hemoglobin 9.3 high Not Available [facility] [address] [place], [address], 01/07/2023 12:15:54 05/22/20 21 elect rocar diogr am, routi ne ECG, 12 leads min No observ ation record ed. [address] [facility] Non Stat [address] [place] [address], [address], 06/10/2021 15:18:59 12/31/19 22 10/27/2021 XR, lumbo sacra l spine , 2 or 3 view No observ ation record ed. [address] [facility] Non Stat [address] [place] [address], [address], 01/13/2022 09:59:37 Result Notes None recorded. Problems Name Status Onset Date Resolution Date Notes Provider Name and Address Organization Details Recorded Time Type 2 diabetes mellitus Active 020 Nahum Hernandez MD [address] [place] [address], [place], [address] , [facility] 02/13/2020 17:33:49 Steatosis of liver Active 020 Nahum Hernandez MD [address] [facility] [place], [address] , [facility] 02/13/2020 17:34:05 Liver function test above reference range Active 021 Demi Zavala NP [address] [facility] [place], [address] , [facility] 11/12/2020 14:02:24 Dyslipidemia Active 021 Demi Zavala NP [address] [facility] [place], [address] , [facility] 11/12/2020 14:02:32 History of cellulitis Active 021 Demi Zavala NP [address] [place], [address] , [facility] 11/12/2020 14:02:39 Abdominal pain Active 021 Hx multiple episodes, image-nega tive. Now on metochlopr amide. Demi Zavala NP [address] [facility] [place] [place], [address] , [facility] 11/12/2020 14:03:14 Problem Notes None recorded. Procedures Surgical History None recorded. Imaging Results Imaging Date Name Status LastModified by [facility] Details LastModified Time 05/22/2021 electrocardiogr am, routine ECG, 12 leads min completed [address] [facility] Non Stat [address], [place], [address], 06/10/2021 15:18:59 10/27/2021 XR, lumbosacral spine, 2 or [address] [facility] Non Stat [address], [place], [address], 01/13/2022 09:59:37 Procedure Notes None recorded. Medical Equipment None Reported. Allergies No known drug allergies Medications Name Sig Start Date Stop Date Status Note LastModified by Organization Details LastModified Time celecoxib 200 mg capsule TAKE 1 CAPSULE (200 MG) BY MOUTH TWO TIMES DAILY WITH MEALS. 01/26 completed Not Available Not Available Not Available amoxicilli n 500 mg capsule TAKE 2 TABLETS TWICE A DAY BY ORAL ROUTE FOR 14 DAYS. 10/06 completed Not Available Not Available Not Available metformin 500 mg tablet TAKE ONE TABLET BY MOUTH TWICE A DAY 10/06 completed Not Available Not Available Not Available gabapentin 600 mg tablet take 1 tablet by oral route 2 times every day 03/12 completed Not Available Not Available Not Available tizanidine 2 mg tablet TAKE 1-2 TABLETS (2-4 MG) BY MOUTH AT BEDTIME. 08/11 completed Not Available Not Available Not Available triamcinol one acetonide 0.5 % topical cream apply by topical route 2 times every day a thin layer to the affected area(s) 09/27 completed Not Available Not Available Not Available Novolin N NPH U-100 Insulin isophane 100 unit/mL subcutaneo us susp inject 57 units in the morning and 39 units in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 A1c checked. Treatment: NPH insulin 48 units AM, 38 units PM, Metformin ER 2000mg daily, Glipizide XR 10mg daily. Home glucose monitoring: fasting 110-150, afternoon 280 2 hours after eating Over all, he has been feeling much better Living with Danii now, which is good per patient. She helps him a lot. No response to attempts to schedule mental health appt. Reports having a lot of appointments recently. He doesn't drive so he prefers not to schedule additional appointments. Gordon shared a little more about his life today. He has a , 3 children, and 2 step children in [place]. He originally came her 17 years ago to earn money to send back home to his family. Has been financially unable to return to [place] and since then, his parents ahve . He feel pressure to stay here and send money because his family owes on a loan. If they don't pay they will lose their house. He feels like things keep coming up that prevent him from returning. Demi Zavala, NAT [address] [place], [address], [facility] - [facility] 08/03/2023 14:43:10
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
== END 2023-10-11 07:19 | disposition home or self-care (01) ==
PROVIDERS: PCP Physician Assistant; Visit Provider Family Medicine
DX: M54.16 Radiculopathy, lumbar region (principal); M51.36 Other intervertebral disc degeneration, lumbar region
CPT/HCPCS: 62323; T1013; J0702; Q9966